=== PATIENT | female | born 1975 | race Caucasian/White ===

== ENCOUNTER 2017-12-12 07:50 | Emergency (ER) | payer SELFPAY ==
[2017-12-12 07:51] VITALS: BP 162/96; PULSE 110; RESP 16; TEMP 36.8; O2SAT 99; BMI 45.4
--- NOTE | 2017-12-12 08:11 | RAD_ITS ---
STUDY: X-RAY CHEST REASON FOR EXAM: Female, 42 years old. Cough and fever. TECHNIQUE: PA and lateral views of the chest. COMPARISON: Comparison is made with prior study dated December 18, 2016. FINDINGS: Mild increased markings are seen in the right middle lobe suggestive of early right middle lobe infiltrate. There is no demonstrated pleural abnormality. Normal size heart. Normal mediastinum and teddy. Normal visualized pulmonary arteries. Normal visualized aortic arch and descending thoracic aorta. Normal visualized thoracic spine. Normal visualized ribs, clavicles, and shoulders. There is no demonstrated abnormality of the visualized soft tissue structures of the upper abdomen. RAD/Chest PA and Lateral IMPRESSION: Findings suggestive of early right middle lobe infiltrate. Electronically Signed: Miguelito Bradford MD at 9:26 EST Tel [phone], Service support ,
--- NOTE | 2017-12-12 08:17 | ED.VISSUMM ---
- ER Visit Summary Date of Service: 12/12/17 Chief Complaint: Cough and fever History of Present Illness: The patient is a 42 F no significant past medical history. For 1 week the patient's had a cough sometimes of dark phlegm most of the time dry cough. She has had a fever as high as 103. She went to another ER approximately a week ago was diagnosed with a UTI and placed on an antibiotic that she has taken 3 times a day. She does not have any antibiotic with her. She said those symptoms are resolving. No hemoptysis. Physical Examination: Well-appearing middle-age female. Vital signs are stable afebrile. Pulse ox 99% on room air no signs of hypoxia. HEENT exam is unremarkable. Moist mucous membranes. Posterior pharynx no erythema no exudate. No trouble swallowing or breathing. Neck nontender. No lymphadenopathy. Lungs dry cough but no rales, rhonchi or wheezing. Heart is regular rhythm no murmur. Abdomen is soft and nontender. She is moving all 4 extremities. Calves nontender, no edema no cords. Logic exam is normal. Skin is unremarkable. Back exam is normal. Test Results: Chest x-ray no acute abnormality read by myself the radiologist. Normal cardiac silhouette. Influenza screen negative. Emergency Department Course and Treatment: Patient is doing well on repeat exam at 09 30. She understands this is more than likely a viral infection and antibiotics to be of no benefit at this time. She will be placed on a cough suppressant to help her sleep at night. And to follow-up her primary care physician if not improving. Treatment Plan: Disposition: Discharge Impression: Acute viral URI / Bronchitis This note was generated with [employer] dictation software. It may contain incorrect words, spelling, and punctuation that were not noted in review of the chart prior to signing ED Disposition - Plan for ED Patient: Chief Complaint: Cough Referrals: Care Physician,No Primary [Primary Care Provider] -
--- NOTE | 2017-12-12 09:35 | ED.DEP ---
ED Disposition - Plan for ED Patient: Disposition: Home or Assisted Living Chief Complaint: Cough Instructions: ED Upper Resp Infec No Abx Tx Prescriptions: Hydrocodone Bit/Homatropine [Hycodan Syrup] 10 ml GT Q4H PRN PRN 10 Days udc PRN Reason: Cough Referrals: Julian Worthy MD [STAFF PHYSICIAN] - As Needed Additional Instructions: Fluids and rest. 5-10 mL's of the Hycodan cough syrup 1-2 hours prior to bed time to help suppress her cough and help his sleep. This is a viral illness and may take another 1-2 weeks to resolve.
== END 2017-12-12 10:48 | disposition home or self-care (01) ==
PROVIDERS: Emergency Provider Emergency Medicine
DX: J06.9 Acute upper respiratory infection, unspecified (principal); J40 Bronchitis, not specified as acute or chronic
CPT/HCPCS: 71046; 87804; 99282